=== PATIENT | male | born 1955 | race Two or more races ===

== ENCOUNTER → 2024-08-02 | Outpatient (BNVA) | payer MEDICARE, OTHER, SELFPAY | END | disposition home or self-care (01) | PROVIDERS: PCP Physician Assistant; Referring Provider Physician Assistant; Visit Provider Urology | DX: N40.1 Benign prostatic hyperplasia with lower urinary tract symptoms (principal); N13.8 Other obstructive and reflux uropathy; I10 Essential (primary) hypertension; N43.3 Hydrocele, unspecified; E78.00 Pure hypercholesterolemia, unspecified; E11.9 Type 2 diabetes mellitus without complications | CPT/HCPCS: 81003; 99212; G0463 ==

== ENCOUNTER → 2025-01-23 | Outpatient (CLI) | payer MEDICARE, OTHER, SELFPAY ==
[2025-01-23 12:08] LABS: Prostate Specific Antigen 1.91 ng/mL (0-4.00)
== END | disposition home or self-care (01) ==
LOC: COPL 10:10
PROVIDERS: PCP Physician Assistant; Referring Provider Urology; Visit Provider Urology
DX: N40.1 Benign prostatic hyperplasia with lower urinary tract symptoms (principal)
CPT/HCPCS: 36415; 84153

== ENCOUNTER → 2025-01-30 | Outpatient (BNVA) | payer MEDICARE, OTHER, SELFPAY | END | disposition home or self-care (01) | PROVIDERS: PCP Physician Assistant; Referring Provider Physician Assistant; Visit Provider Urology | DX: N40.1 Benign prostatic hyperplasia with lower urinary tract symptoms (principal); N13.8 Other obstructive and reflux uropathy; I10 Essential (primary) hypertension; E78.00 Pure hypercholesterolemia, unspecified; E11.9 Type 2 diabetes mellitus without complications | CPT/HCPCS: 81003; 99213; G0463 ==

== ENCOUNTER 2025-02-17 07:05 | Day surgery (SDC) | payer MEDICARE, OTHER, SELFPAY ==
[2025-02-17] VITALS (9 sets, daily range): BP systolic 97–159; BP diastolic 60–83; PULSE 69–97; RESP 16–20; TEMP 36.6–37.1; O2SAT 95–98; BMI 30.4
[2025-02-17] MEDS: SODIUM CHLORIDE 0.9% 500 ML 500 ML 20 ML IV (09:30)
[2025-02-17] MEDS: MIDAZOLAM INJ 1 MG/ML VIAL 2 ML 2 MG IVP (09:33)
[2025-02-17] MEDS: fentaNYL CIT INJ 50 mCg/ML AMP 2ML IVP (09:33)
--- NOTE | 2025-02-17 09:42 | SUR.PHASEII ---
[id number] patient arrived to recovery report received from Essie CASTANEDA
--- NOTE | 2025-02-17 10:24 | SUR.PHASEII ---
patient dressed in his clothing and awaiting for his daughter
--- NOTE | 2025-02-17 10:52 | SUR.PHASEII ---
1052 patient meets discharge criteria from recovery, awake and alert, breathing unlabored, vital signs stable, denies pain and nausea, discharge instructions given to patient and patients daughter, daughter signed discharge instructions, given all his belongings prior to discharge, transported via wheelchair and left in a private vehicle.
== END 2025-02-17 10:52 | disposition home or self-care (01) ==
PROVIDERS: PCP Physician Assistant; Referring Provider Specialist; Visit Provider Specialist
PROC: 0DBE8ZX Excision of Large Intestine, Via Natural or Artificial Opening Endoscopic, Diagnostic (ICD-10-PCS; CPT 45380; principal; 2025-02-17 08:30)
DX: Z12.11 Encounter for screening for malignant neoplasm of colon (principal); K64.1 Second degree hemorrhoids; K57.30 Diverticulosis of large intestine without perforation or abscess without bleeding
CPT/HCPCS: G0121; A4649; J1200; J2250; J3010; J7999